=== PATIENT | female | born 1955 | race Caucasian/White ===

== ENCOUNTER 2024-07-25 13:45 | Outpatient (OUT) | payer MEDICARE, MEDICAID, SELFPAY ==
--- NOTE | 2024-07-25 14:05 | CT_ITS ---
The [address] [address] Patient Name: GRISELDA MCGRAW MRN: [id number] date: 1955 Sex: F Assigned Patient Location: CT Current Patient Location: CT Accession/Order Number: [id number] Exam Date: 07/25/2024 14:32 Report Date: 07/25/2024 14:34 At the request of: PAM GARRETT Procedure: CT sinus wo con CT PARANASAL SINUSES WITHOUT CONTRAST: CLINICAL HISTORY: Chronic Sinusitis COMPARISON: None TECHNIQUE: Contiguous axial unenhanced images were obtained through the paranasal sinuses. Coronal reconstructions were also performed. This CT exam was performed using one or more following dose reduction techniques: Automated exposure control, adjustment of the mA and/or kV according to patient size, or use of iterative reconstruction technique. FINDINGS: Mild frontal sinus disease. Mild ethmoid and sphenoid sinus disease. There is near complete opacification of the left maxillary sinus. Right maxillary sinus appears unremarkable. No bony destruction or air-fluid levels. Nasal septum is deviated towards the left. Left ostiomeatal complex appears occluded. Visualized mastoid air cells appear well-pneumatized. Postoperative changes involving the left globe. Right globe appears unremarkable. No significant soft tissue swelling. Nasopharynx appears unremarkable. CT/CT sinus wo con IMPRESSION: CHRONIC SINUSITIS WITHOUT AGGRESSIVE FEATURES. Impression dictated by: Dwight Donovan Jr., DBrettOBrett07/25/2024 2:34 PM Dictation Location: [place] [address] Electronically authenticated by: [id number] Y Date: 07/25/2024 14:34
== END 2024-07-25 13:46 | disposition home or self-care (01) ==
PROVIDERS: PCP Family Medicine; Visit Provider Family Medicine
DX: J32.9 Chronic sinusitis, unspecified (principal)
CPT/HCPCS: 70486